=== PATIENT | female | born 1980 | race Caucasian/White ===

== ENCOUNTER 2018-12-06 12:15 | Inpatient (IN) | payer OTHER ==
[~2018-12-06] VITALS: Ht 165.1 cm; Wt 95.7 kg
[2018-12-19] MEDS ORDERED: PRENATAL VITAM1 EAC5 PO (13:54)
== END 2018-12-21 17:03 | DRG 807 ==
LOC: LDR 12-13 12:00 → OB/GYN 12-19 12:30 → LDR 01-01 12:00
PROVIDERS: ADMIT Specialist
PROC: 10E0XZZ Delivery of Products of Conception, External Approach (ICD-10-PCS; principal; 2018-12-19)
PROC: 4A1HXCZ Monitoring of Products of Conception, Cardiac Rate, External Approach (ICD-10-PCS; 2018-12-19)
DX: O80 Encounter for full-term uncomplicated delivery (principal); Z37.0 Single live birth; Z3A.38 38 weeks gestation of pregnancy; Z22.330 Carrier of Group B streptococcus

== ENCOUNTER 2020-05-31 10:21 | Emergency (ER) | payer OTHER ==
[~2020-05-31] VITALS: Ht 165.1 cm; Wt 78.9 kg
[~2020-05-31 10:21] MED LIST: PRENATAL VITAM1 EAC5 PO
== END 2020-05-31 13:35 | disposition home or self-care (01) ==
LOC: ER 10:21
DX: O26.891 Other specified pregnancy related conditions, first trimester (principal); R10.2 Pelvic and perineal pain; Z3A.01 Less than 8 weeks gestation of pregnancy

== ENCOUNTER 2020-06-27 07:43 | Day surgery (SDC) | payer OTHER | END 2020-06-27 18:00 | disposition home or self-care (01) | LOC: CIR.AMB 07:43 | PROVIDERS: ATTEND Specialist | DX: O02.1 Missed abortion (principal); Z20.828 Contact with and (suspected) exposure to other viral communicable diseases ==

== ENCOUNTER 2020-12-13 08:00 | Outpatient (CLI) | payer OTHER | END 2020-12-13 08:30 | disposition home or self-care (01) | LOC: PPH VACUNA 08:00 | DX: Z23 Encounter for immunization (principal) ==

== ENCOUNTER 2021-01-09 08:00 | Outpatient (CLI) | payer OTHER | END 2021-01-09 08:30 | disposition home or self-care (01) | LOC: PPH VACUNA 08:00 | DX: Z23 Encounter for immunization (principal) ==

== ENCOUNTER 2021-08-13 09:00 | Outpatient (CLI) | payer OTHER | END 2021-08-13 09:15 | disposition home or self-care (01) | LOC: PPH VACUNA 09:00 | PROVIDERS: ATTEND Emergency Medicine Pediatric Emergency Medicine | DX: Z23 Encounter for immunization (principal) ==

== ENCOUNTER 2021-09-24 12:00 | Inpatient (IN) | payer OTHER ==
[~2021-09-24] VITALS: Ht 165.1 cm; Wt 96.6 kg
[2021-10-23] MEDS ORDERED: PROGESTERONE200 MG (08:57)
== END 2021-10-25 12:55 | disposition home or self-care (01) | DRG 807 ==
LOC: LDR 10-23 06:48 → SURG-SUITE 10-23 16:16
PROVIDERS: ADMIT Specialist; ATTEND Specialist
PROC: 10E0XZZ Delivery of Products of Conception, External Approach (ICD-10-PCS; principal; 2021-10-23)
PROC: 4A1HXCZ Monitoring of Products of Conception, Cardiac Rate, External Approach (ICD-10-PCS; 2021-10-23)
DX: O80 Encounter for full-term uncomplicated delivery (principal); Z37.0 Single live birth; Z3A.40 40 weeks gestation of pregnancy; Z20.822 Contact with and (suspected) exposure to COVID-19

== ENCOUNTER 2021-10-08 09:48 | Outpatient (CLI) | payer OTHER | END 2021-10-08 10:57 | disposition home or self-care (01) | LOC: NST 09:48 | PROVIDERS: ATTEND Specialist | DX: Z34.83 Encounter for supervision of other normal pregnancy, third trimester (principal) ==

== ENCOUNTER 2024-01-25 15:29 | Outpatient (CLI) | payer OTHER ==
[~2024-01-25 15:29] MED LIST changes: +PROGESTERONE200 MG
== END 2024-01-25 15:30 | disposition home or self-care (01) ==
LOC: PRENATAL 15:29
PROVIDERS: ATTEND Obstetrics & Gynecology Maternal & Fetal Medicine
DX: O35.9XX0 Maternal care for (suspected) fetal abnormality and damage, unspecified, not applicable or unspecified (principal); O35.3XX0 Maternal care for (suspected) damage to fetus from viral disease in mother, not applicable or unspecified; O44.00 Complete placenta previa NOS or without hemorrhage, unspecified trimester; O09.529 Supervision of elderly multigravida, unspecified trimester; O99.891 Other specified diseases and conditions complicating pregnancy; Z3A.20 20 weeks gestation of pregnancy

== ENCOUNTER 2024-04-20 13:53 | Outpatient (CLI) | payer OTHER | END 2024-04-20 13:54 | disposition home or self-care (01) | LOC: PRENATAL 13:53 | PROVIDERS: ATTEND Obstetrics & Gynecology Maternal & Fetal Medicine | DX: O26.849 Uterine size-date discrepancy, unspecified trimester (principal); O36.8199 Decreased fetal movements, unspecified trimester, other fetus; O09.529 Supervision of elderly multigravida, unspecified trimester; O99.891 Other specified diseases and conditions complicating pregnancy; O99.019 Anemia complicating pregnancy, unspecified trimester; Z3A.32 32 weeks gestation of pregnancy ==

== ENCOUNTER 2024-05-17 10:13 | Outpatient (CLI) | payer OTHER | END 2024-05-17 10:14 | disposition home or self-care (01) | LOC: PRENATAL 10:13 | PROVIDERS: ATTEND Obstetrics & Gynecology Maternal & Fetal Medicine | DX: O26.849 Uterine size-date discrepancy, unspecified trimester (principal); O36.8199 Decreased fetal movements, unspecified trimester, other fetus; O09.529 Supervision of elderly multigravida, unspecified trimester; O99.019 Anemia complicating pregnancy, unspecified trimester; Z3A.36 36 weeks gestation of pregnancy ==